=== PATIENT | female | born 1990 | race African-American/Black ===

== ENCOUNTER 2021-09-06 12:45 | Emergency (ER) | payer BC, OTHER ==
[~2021-09-06] VITALS: Ht 157.5 cm; Wt 56.3 kg
--- NOTE | 2021-09-06 13:08 | RAD ---
Study: XR CHEST 1V Indication: Palpitations. Comparison: 12/12/2014 Findings: The cardiomediastinal silhouette and fariha are within normal limits. No localized airspace opacity, pl eural effusion or pneumothorax. Impression: No acute radiographic abnormality of the chest. Electronically signed by: SARAH ZHOU MD (09/06/2021 1:06 PM) [facility]ELY[facility]
--- NOTE | 2021-09-06 13:17 | PHYS DOC ---
Past History Past Surgical History: No Surgical History Alcohol Use: Occasionally General Adult EDM: Chief Complaint: Palpitations HPI: HPI: 30-year-old female presents with palpitations. She has been having heart palpitations for 3 or 4 days. She was not doing anything in particular when it started. She has had increased overall stress level lately. She denies chest pain, diaphoresis, or shortness of breath. She has had palpitations in the past in high school. Her work-up at that time was negative. She avoids caffeine as much as possible. She is trying to quit smoking and has only smoked a part of a cigarette in the last several days. She admits to occasional marijuana use, last time 2 days ago. Denies any other drug or alcohol use. Denies fever or chills. Review of Systems: Review of Systems: Constitutional: Denies fever or chills Eyes: Denies change in visual acuity HENT: Denies nasal congestion or sore throat Respiratory: Denies cough or shortness of breath Cardiovascular: Palpitations. Denies chest pain or edema GI: Denies abdominal pain, nausea, vomiting, bloody stools or diarrhea : Denies dysuria Musculoskeletal: Denies back pain or joint pain Integument: Denies rash Neurologic: Denies headache, focal weakness or sensory changes Endocrine: Denies polyuria or polydipsia Lymphatic: Denies swollen glands Psychiatric: Denies depression or anxiety Physical Exam: PE: Constitutional: Well developed, well nourished, no acute distress, non-toxic appearance. [] HENT: Normocephalic, atraumatic, bilateral external ears normal, oropharynx moist, no oral exudates, nose normal. [] Eyes: PERRLA, EOMI, conjunctiva normal, no discharge. [] Neck: Normal range of motion, no tenderness, supple, no stridor. [] Cardiovascular: Heart rate 77, regular rhythm, no murmur [] Lungs & Thorax: Bilateral breath sounds clear to auscultation [] Abdomen: Bowel sounds normal, soft, no tenderness, no masses, no pulsatile masses. [] Skin: Warm, dry, no erythema, no rash. [] Back: No tenderness, no CVA tenderness. [] Extremities: No tenderness, no cyanosis, no clubbing, ROM intact, no edema. [] Neurologic: Alert and oriented X 3, normal motor function, normal sensory func tion, no focal deficits noted. [] Psychologic: Affect normal, judgement normal, mood normal. [] Current Patient Data: Vital Signs: Vital Signs Date Time Temp Pulse Resp B/P (MAP) Pulse Ox O2 Delivery O2 Flow Rate FiO2 09/06/21 12:46 98.0 66 16 104/69 (81) 100 Room Air EKG: EKG: Sinus rhythm, rate 77, normal axis, no ST elevation or depression, premature atrial complex. [] Radiology/Procedures: Radiology/Procedures: [] Impressions: Study: XR CHEST 1V Indication: Palpitations. Comparison: 12/12/2014 Findings: The cardiomediastinal silhouette and fariha are within normal limits. No localized airspace opacity, pleural effusion or pneumothorax. Impression: No acute radiographic abnormality of the chest. Electronically signed by: SARAH ZHOU MD (09/06/2021 1:06 PM) [facility] DICTATED AND SIGNED BY: SARAH ZHOU MD DATE: 09/06/21 1305 CC: JONATHAN BODY DO; GILBERT KING MD ~MTH0 0 Heart Score: C/O Chest Pain: No Risk Factors: Risk Factors: DM, Current or recent (<one month) smoker, HTN, HLP, family history of CAD, obesity. Risk Scores: Score 0 - 3: 2.5% MACE over next 6 weeks - Discharge Home Score 4 - 6: 20.3% MACE over next 6 weeks - Admit for Clinical Observation Score 7 - 10: 72.7% MACE over next 6 weeks - Early Invasive Strategies Course & Med Decision Making: Course & Med Decision Making Pertinent Labs and Imaging studies reviewed. (See chart for details) The patient's EKG is unremarkable except for PAC. Her chest x-ray is negative for acute finding. The patient's labs are unremarkable. Her troponin is negative. I will see anything significant that might cause her palpitations to be more frequent. It appears to be benign at this time. She is stable for discharge. [] Dragon Disclaimer: Dragon Disclaimer: This electronic medical record was generated, in whole or in part, using a voice recognition dictation system. Departure Departure: Impression: Primary Impression: Palpitations Disposition: HOME / SELF CARE / HOMELESS Condition: STABLE Referrals: GILBERT KING MD (PCP) Patient Instructions: Palpitations, [id number] JONATHAN BOYD DO Sep 06, 2021 13:17
[2021-09-06 13:36] LABS: POTASSIUM ISTAT 3.8 mmol/L (3.5-5.0)
[2021-09-06 13:37] LABS: HEMOGLOBIN ISTAT 12.6 gm/dL
[2021-09-06 13:42] LABS: BASO # 0.1 x10^3/uL (0.0-0.2); BASO % 1 % (0-3); EOS # 0.2 x10^3/uL (0.0-0.7); EOS % 3 % (0-3); HEMATOCRIT 40.2 % (36.0-47.0); HEMOGLOBIN 13.5 g/dL (12.0-15.5); LYMPH # 2.8 x10^3/uL (1.0-4.8); LYMPH % 49 % (24-48); MEAN CORPUSCULAR HEMOGLOBIN 32 pg (25-35); MEAN CORPUSCULAR HGB CONC 34 g/dL (31-37); MEAN CORPUSCULAR VOLUME 96 fL (79-100); MONO # 0.3 x10^3/uL (0.0-1.1); MONO % 6 % (0-9); NEUT # 2.4 x10^3uL (1.8-7.7); NEUT % 42 % (31-73); PLATELET COUNT 194 x10^3/uL (140-400); RED BLOOD COUNT 4.21 x10^6/uL (3.50-5.40); RED CELL DISTRIBUTION WIDTH 12.8 % (11.5-14.5); WHITE BLOOD COUNT 5.8 x10^3/uL (4.0-11.0)
[2021-09-06 13:46] VITALS: BP 129/64
[2021-09-06 14:08] LABS: BILIRUBIN,URINE NEG (NEG); CLARITY,URINE CLEAR; COLOR,URINE YELLOW; GLUCOSE,URINE NEG (NEG)
[2021-09-06 14:09] LABS: BACTERIA,URINE 0 /HPF (0-FEW); NITRITE,URINE NEG (NEG); RBC,URINE OCC /HPF (0-2); UROBILINOGEN,URINE 0.2 mg/dL (0.2 mg/dL); WBC,URINE 0 /HPF (0-4)
[2021-09-06 15:38] LABS: ALBUMIN 3.5 g/dL (3.4-5.0); DIRECT BILIRUBIN 0.2 mg/dL (0.0-0.2); TOTAL BILIRUBIN 0.4 mg/dL (0.2-1.0)
[2021-09-06 15:52] LABS: BARBITURATES NEG (NEG); BENZODIAZEPINES NEG (NEG); CANNABINOIDS POS (NEG); COCAINE NEG (NEG); METHADONE NEG (NEG); OPIATES NEG (NEG); PHENCYCLIDINE NEG (NEG)
[2021-09-06 15:57] LABS: AMPHETAMINE/METHAMPHETAMINE NEG (NEG)
--- NOTE | 2021-09-06 20:30 | EKG ---
[address] [id number] Test Date: 2021-09-06 Test Time: 13:01:55 Pat Name: MIHAELA FOUNTAIN Department: Room: Gender: F [facility] Assistant: YESENIA : 1990 Requested By: JONATHAN BOYD Order Number: [id number] Reading MD: Ata Jensen MD Measurements Intervals [place] Rate: 77 P: 63 NC: 136 QRS: 55 QRSD: 68 T: 46 QT: 358 QTc: 407 Interpretive Statements SINUS RHYTHM Electronically Signed On 09-07-2021 9:22:16 SHOE DRESSER by Ata Jensen MD
== END 2021-09-06 14:44 ==
LOC: ER 12:45
DX: R00.2 Palpitations (principal)
CPT/HCPCS: 36415; 71045; 80047; 80076; 80307; 81001; 84484; 85025; 93005; 99285